=== PATIENT | female | born 1935 | race Caucasian/White ===

== ENCOUNTER → 2016-11-15 | Outpatient (CLI) | payer OTHER ==
[~2016-11-15] MED LIST: ASPI-390 PO; ASPI325T45 PO; CALCTAB PO; DOCU100T7 PO; HYDR25TA4 PO; LORA-741 PO; MECL12.5 PO; METO25TA3 PO; OMEG-21 PO; OMEP20CA9 PO; ONDA4TAB7 SL; POTA-331 PO; SIMV20TA5 PO
--- NOTE | 2016-11-15 14:55 | MAMMOGRAPHY REPORT ---
BILATERAL DIGITAL SCREENING MAMMOGRAM WITH CAD: 11/15/2016 CLINICAL HISTORY: Routine screening. Patient has no complaints. TECHNIQUE: Current study was also evaluated with a Computer Aided Detection (CAD) system. Bilateral CC and MLO views were obtained. COMPARISON: Comparison is made to exams dated: 11/15/2015 mammogram, 11/10/2014 mammogram, 11/09/2013 m ammogram, 05/05/2013 mammogram, 11/05/2012 ultrasound, and 11/05/2012 mammogram - [facility]. BREAST COMPOSITION: There are scattered areas of fibroglandular density in both breasts. FINDINGS: No suspicious masses, calcifications, or areas of architectural distortion are noted in ei ther breast. There has been no significant interval change compared to prior exams. Scattered bilater al benign-appearing calcifications are not significantly changed. IMPRESSION: ACR BI-RADS CATEGORY 2: BENIGN There is no mammographic evidence of malignancy. A 1 year screening mammogram is recommended. The pa tient will receive written notification of the results. Approximately 10% of breast cancers are not detected with mammography. A negative mammographic report should not delay biopsy if a clinically suggestive mass is present. Shirley Uriostegui M.D. /:11/15/2016 11:59:13 Gas Singer: Buffy BENJAMIN(Emily)(M), [facility] letter sent: Normal 1/2 BI-RADS Code: ACR BI-RADS Category 2: Benign
== END | disposition home or self-care (01) ==
LOC: C.MAMM 10:16
PROVIDERS: ATTEND Family Medicine
DX: Z12.31 Encounter for screening mammogram for malignant neoplasm of breast (principal)

== ENCOUNTER 2017-06-12 09:51 | Inpatient (IN) | payer OTHER ==
[~2017-06-12] VITALS: Ht 147.3 cm; Wt 97.7 kg
[~2017-06-12 09:51] MED LIST changes: +ASPECOTC PO; -ASPI325T45 PO; -DOCU100T7 PO; -HYDR25TA4 PO; -METO25TA3 PO
[2017-06-12] MEDS ORDERED: OPTIRAY 320 IV PRN (10:15)
--- NOTE | 2017-06-12 10:16 | DIAGNOSTIC IMAGING REPORT ---
CHEST ONE VIEW PORTABLE CLINICAL HISTORY: Atypical chest pain COMPARISON STUDY: 07/18/2012 FINDINGS: The cardiac and mediastinal contours remain stable. The heart remains borderline enlarged. There is no focal pulmonary consolidation. There is no overt failure. There are no pleural effusions. Increased attenuation of the lung bases is felt to be secondary to overlying soft tissue.[ IMPRESSION: No active disease in the chest. Electronically signed by: Adin Jaimes M.D. 06/12/2017 10:15 AM Dictated Date/Time: 06/12/2017 10:14 AM
--- NOTE | 2017-06-12 10:23 | EMERGENCY ROOM VISIT NOTE ---
History Report prepared by Inocencio: Lalo Hanson Under the Supervision of: Dr. Umesh Chacon M.D. First contact with patient: 09:53 Chief Complaint: SHORTNESS OF BREATH Stated Complaint: RESPIRATORY History of Present Illness The patient is an 82 year old female who presents to the Emergency Room with complaints of worsening shortness of breath starting yesterday. The patient was at her director client this morning for a check up due to a history of skin cancer , and she was short of breath, and she was sent to the ED for evaluation. The patient denies any chest pain, cough, fever, chills, and vomiting. She notes that she was nauseous two nights ago, and she was not short of breath at the time. She denies ever smoking, history of COPD, history of asthma, history of heart problems. She has a history of irregular heart beats. The patient additionally notes that she has a history of blood clots after a surgery, though she is not currently on any blood thinners. She states that she has a history of spinal stenosis, so she is not very active. The patient reports that she fell asleep in her recliner last night, and her legs are now swollen. Source of History: patient Onset: yesterday Position: other (generalized) Quality: other (shortness of breath) Timing: worsening Associated Symptoms: + nausea, No fevers, No chills, No cough, No chest pain , No vomiting Review of Systems See HPI for pertinent positives and negatives. A total of ten systems were reviewed and were otherwise negative. Past Medical & Surgical Medical Problems: (1) Atrial ventricular ectopy (2) Dyslipidemia (3) GERD (gastroesophageal reflux disease) (4) Hypertension (5) Osteoarthritis (6) Osteoporosis (7) Pulmonary embolism (8) Spinal stenosis Surgical Problems: (1) History of appendectomy (2) History of carpal tunnel surgery (3) History of cataract surgery (4) History of tonsillectomy and adenoidectomy Social History Problems: (1) Benign hypertension (2) Diverticulitis (3) Kidney stone (4) Migraine (5) renal insufficiency Social History Alcohol Use: none Drug Use: none Marital Status: Housing Status: lives alone Current/Historical Medications Scheduled Aspirin (Aspirin Ec), 81 MG PO DAILY Calcium Carbonate-Cholecalcife (Caltrate 600+D), 2 TAB PO QAM Cetirizine (Zyrtec), 10 MG PO DAILY Docusate Sodium (Stool Softener), 100 MG PO HS Hydrochlorothiazide (Hctz), 25 MG PO DAILY Metoprolol Succ (Toprol Xl) (Toprol-Xl), 37.5 MG PO DAILY Omeprazole (Prilosec), 20 MG PO DAILY Potassium Chloride (Micro-K Ext Rel), 20 MEQ PO DAILY Simvastatin (Zocor), 20 MG PO QPM Scheduled PRN Meclizine HCl (Meclizine HCl), 12.5-25 MG PO TID PRN for dizziness Allergies Coded Allergies: Sulfa Drugs (Verified Allergy, Intermediate, ITCHING, RASH, 06/12/17) Cephalosporins (Verified Allergy, Unknown, UNKNOWN, 06/12/17) Cephalexin (Verified Adverse Reaction, Unknown, GI UPSET, 06/12/17) pt Physical Exam Vital Signs Date Time Temp Pulse Resp B/P (MAP) Pulse Ox O2 Delivery O2 Flow Rate FiO2 06/12/17 13:42 89 20 97 Nasal Cannula 3.0 06/12/17 12:58 84 06/12/17 11:42 87 22 111/61 98 Nasal Cannula 4.0 06/12/17 10:04 97 Nasal Cannula 3.0 06/12/17 10:03 97 Nasal Cannula 3.0 06/12/17 10:03 100 06/12/17 09:59 85 Room Air 06/12/17 09:59 36.7 102 22 151/85 85 Room Air Physical Exam GENERAL: Awake, alert, dyspneic appearing, in no distress HENT: Normocephalic, atraumatic. Oropharynx Dry MM and otherwise unremarkable EYES: Normal conjunctiva. Sclera non-icteric. NECK: Supple. No nuchal rigidity. FROM. No JVD. RESPIRATORY: Clear to auscultation. CARDIAC: Tachycardic rate, normal rhythm. Extremities warm and well perfused. Pulses equal. ABDOMEN: Soft, non-distended. No tenderness to palpation. No rebound or guarding. No masses. RECTAL: Deferred. MUSCULOSKELETAL: Chest examination reveals no tenderness. The back is symmetrical on inspection without obvious abnormality. There is no CVA tenderness to palpation. No joint edema. LOWER EXTREMITIES: 1+ lower extremity edema. Calves are equal size bilaterally and non-tender. No discoloration. NEURO: Normal sensorium. No sensory or motor deficits noted. SKIN: No rash or jaundice noted. Medical Decision & Procedures ER Provider Diagnostic Interpretation: Radiology results as stated below per my review and radiologist interpretation: CHEST ONE VIEW PORTABLE CLINICAL HISTORY: Atypical chest pain COMPARISON STUDY: 07/18/2012 FINDINGS: The cardiac and mediastinal contours remain stable. The heart remains borderline enlarged. There is no focal pulmonary consolidation. There is no overt failure. There are no pleural effusions. Increased attenuation of the lung bases is felt to be secondary to overlying soft tissue.[ IMPRESSION: No active disease in the chest. Electronically signed by: Adin Jaimes M.D. 06/12/2017 10:15 AM Dictated Date/Time: 06/12/2017 10:[address] ANGIOGRAM OF THE CHEST CLINICAL HISTORY: Hypoxia. Tachycardia. COMPARISON STUDY: Chest x-ray dated 06/12/2017. TECHNIQUE: Following the IV administration of 120 cc of Optiray 320, CT angiogram of the chest was performed from the upper abdomen to the thoracic inlet utilizing the pulmonary embolus protocol. Images are reviewed in the axial, sagittal, and coronal planes. 3-D MIPS images are created and assessed. IV contrast was administered without complication. A dose lowering technique was utilized adhering to the principles of ALARA. The examination is degraded by large body habitus, and by streak artifact from the body wall abutting the CT gantry. CT DOSE: 560.58 mGycm FINDINGS: Thyroid: Imaged portions of the thyroid gland are normal in size and attenuation. Bilateral low-attenuation thyroid nodules measure up to 12 mm. Thoracic aorta: There is mild atherosclerotic calcification of the thoracic aorta, which is normal in caliber and demonstrates standard 3-vessel arch anatomy. No dissection is seen. Pulmonary vasculature: The main pulmonary arteries are dilated indicating pulmonary artery hypertension. There is extensive bilateral pulmonary embolus. Thrombus is seen within the distal right main pulmonary artery. This extends into the right upper, right middle, and right lower lobe branches into segmental and subsegmental levels. Thrombus is seen within the distal left main pulmonary artery. This extends into the left upper and left lower lobe pulmonary arteries extending into segmental branches. Heart: The heart is mildly enlarged and there is trace pericardial fluid. There is lipomatous hypertrophy of interatrial septum. The coronary arteries are densely calcified. Lungs and pleural spaces: Evaluation of the lung parenchyma is degraded by motion artifact. Patchy consolidation is seen in the left lower lobe. The lungs are otherwise clear. No pleural effusion is seen. The trachea and central airways are patent. Mediastinum: There is no mediastinal lymphadenopathy. Saba: Clear. Axillae: There is no axillary lymphadenopathy. Upper abdomen: The liver is enlarged and steatotic. A tiny hiatal hernia is identified. Skeletal structures: The skeletal structures are osteopenic. Degenerative change and scoliosis are noted in the thoracic spine. Arthritic change is seen in the shoulders. There are mild compression deformities of T3 and L1. No lytic or blastic bony lesions are seen. IMPRESSION: 1. Extensive bilateral pulmonary emboli as above. 2. There is patchy airspace consolidation at the left lung base. This likely represents developing pulmonary infarct given the presence of extensive pulmonary emboli. An infectious/inflammatory pneumonitis could appear similar and clinical correlation will be required. 3. Cardiomegaly with evidence of pulmonary artery hypertension. 4. Hepatomegaly and hepatic steatosis. 5. Additional findings as above. Electronically signed by: Hadley Redd M.D. 06/12/2017 12:29 PM Dictated Date/Time: 06/12/2017 12:21 PM Laboratory Results 06/12/17 10:49 Red Blood Count 4.66, Mean Corpuscular Volume 90.6, Mean Corpuscular Hemoglobin 32.0, Mean Corpuscular Hemoglobin Concent 35.3, Mean Platelet Volume 11.4, Neutrophils (%) (Auto) 79.2, Lymphocytes (%) (Auto) 12.8, Monocytes (%) (Auto) 5.7, Eosinophils (%) (Auto) 1.7, Basophils (%) (Auto) 0.4, Neutrophils # (Auto) 6.56, Lymphocytes # (Auto) 1.06, Monocytes # (Auto) 0.47, Eosinophils # (Auto) 0.14, Basophils # (Auto) 0.03 06/12/17 10:49 Test 06/12/17 10:05 06/12/17 10:49 Influenza Type A (RT-PCR) Neg for Influ A (NEG) Influenza Type B (RT-PCR) Neg for Influ B (NEG) White Blood Count 8.28 K/uL (4.8-10.8) Red Blood Count 4.66 M/uL (4.2-5.4) Hemoglobin 14.9 g/dL (12.0-16.0) Hematocrit 42.2 % (37-47) Mean Corpuscular Volume 90.6 fL (80-100) Mean Corpuscular Hemoglobin 32.0 pg (25-34) Mean Corpuscular Hemoglobin Concent 35.3 g/dl (32-36) Platelet Count 194 K/uL (130-400) Mean Platelet Volume 11.4 fL (7.4-10.4) Neutrophils (%) (Auto) 79.2 % Lymphocytes (%) (Auto) 12.8 % Monocytes (%) (Auto) 5.7 % Eosinophils (%) (Auto) 1.7 % Basophils (%) (Auto) 0.4 % Neutrophils # (Auto) 6.56 K/uL (1.4-6.5) Lymphocytes # (Auto) 1.06 K/uL (1.2-3.4) Monocytes # (Auto) 0.47 K/uL (0.11-0.59) Eosinophils # (Auto) 0.14 K/uL (0-0.5) Basophils # (Auto) 0.03 K/uL (0-0.2) RDW Standard Deviation 43.9 fL (36.4-46.3) RDW Coefficient of Variation 13.4 % (11.5-14.5) Immature Granulocyte % (Auto) 0.2 % Immature Granulocyte # (Auto) 0.02 K/uL (0.00-0.02) Venous Blood pH 7.41 (7.36-7.41) Venous Blood Partial Pressure CO2 47 mmHg (38.0-50.0) Venous Blood Partial Pressure O2 28 mmHg Venous Blood HCO3 29 mmol/L Venous Blood Oxygen Saturation < 60.0 % Venous Blood Base Excess 3.6 mEq/L Anion Gap 9.0 mmol/L (3-11) Est Creatinine Clear Calc Drug Dose 38.4 ml/min Estimated GFR () 50.6 Estimated GFR (Non- 43.7 BUN/Creatinine Ratio 22.0 (10-20) Calcium Level 9.8 mg/dl (8.5-10.1) Magnesium Level 1.7 mg/dl (1.8-2.4) Total Bilirubin 0.7 mg/dl (0.2-1) Direct Bilirubin mg/dl (0-0.2) Aspartate Amino Transf (AST/SGOT) 19 U/L (15-37) Alanine Aminotransferase (ALT/SGPT) 20 U/L (12-78) Alkaline Phosphatase 89 U/L (45-117) Troponin I < 0.015 ng/ml (0-0.045) Pro-B-Type Natriuretic Peptide 486 pg/ml (0-1800) Total Protein 7.4 gm/dl (6.4-8.2) Albumin 3.6 gm/dl (3.4-5.0) Lipase 71 U/L (73-393) Chemistry Specimen Hemolysis Laboratory results reviewed by me Medications Administered Medications (Trade) Dose Ordered Sig/Sierra Route Start Time Stop Time Status Last Admin Dose Admin Ondansetron HCl (Zofran Inj) 4 mg STK-MED ONCE .ROUTE 06/12/17 11:38 06/12/17 11:39 DC 06/12/17 11:42 4 MG Sodium Chloride 500 ml @ 999 mls/hr Q31M STAT IV 06/12/17 11:57 06/12/17 12:27 DC 06/12/17 12:27 999 MLS/HR Magnesium Sulfate (Magnesium Sulfate 1gm / D5W) 2 gm NOW STAT IV 06/12/17 12:42 06/12/17 12:45 DC 06/12/17 13:10 2 GM Heparin Sodium/ Dextrose (Heparin 25,000 Unit/500ml D5W) 25,000 unit STK-MED ONCE .ROUTE 06/12/17 12:59 06/12/17 13:00 DC 06/12/17 14:05 25,000 UNIT Heparin Sodium (Porcine) (Heparin Iv Bolus) 10,000 unit STK-MED ONCE .ROUTE 06/12/17 12:59 06/12/17 13:00 DC 06/12/17 14:04 5,000 UNIT ECG Per My Interpretation Indication: SOB/dyspnea Rate (beats per minute): 101 Rhythm: sinus tachycardia Findings: Q waves (Inferior), no acute ischemic change, left axis deviation ED Course 0953: The patient was evaluated in room B4. A complete history and physical exam was performed. 1240: I reevaluated the patient, and I discussed the treatment plan with her and her family. She will be evaluated for further management. 1245: I discussed the patient with Tiffanie Uribe. She will evaluate the patient for further treatment. Medical Decision I reviewed the patient's past medical history, medications, and the nursing notes as described above. Differential diagnosis: Etiologies such as infections, reactive airway disease, pneumonia, pneumothorax , COPD, CHF, cardiac ischemia, pulmonary embolism, musculoskeletal, gastrointestinal, as well as others were entertained. The patient is a pleasant 82-year-old woman who presents emergency department with shortness of breath over the past couple of days found to be hypoxic at her outpatient dermatology appointment per hpi. On arrival the patient is hypoxic to 85% on room air and tachycardic in the low 100s. The patient reports a remote history in the 90s of PEs in the setting of surgery also reports that she is been significantly immobile due to her spinal stenosis over the past couple of years. EKG with inferior Q waves and otherwise without evidence of acute ischemia. Troponin and BNP unremarkable. Chest x-ray negative. CT PE demonstrating extensive PE findings from b/l pulmonry arteries extending to segmental and subsegmental areas with question of an early developing pulmonary infarct. Patient denies any history of easy bleeding or GI bleeding. Given the question of pulmonary infarct will begin treatment with heparin drip at this time. Bedside echo performed and did not demonstrate any significant pericardial effusion. Moreover, there was no evidence of any gross right heart strain. Hemodynamically stable in ED. Case was discussed with Jojo Garcia PAC, who will evaluate the patient for admission. Medication Reconcilliation Current Medication List: was personally reviewed by me Blood Pressure Screening Patient's blood pressure: Elevated blood pressure Monitored by the hospitalist. Consults Time Called: 1240 Consulting Physician: Tiffanie Uribe Returned Call: 1245 I discussed the patient with Tiffanie Uribe. She will evaluate the patient for further treatment. Impression Primary Impression: Pulmonary embolism, bilateral Critical Care I have personally spent greater than 35 minutes of critical care time in the direct management of this patient. This includes bedside care, interpretation of diagnostic studies, and testing, discussion with consultants, patient, and family members, and other required patient management activities. This 35 minutes is in excess of all separately billable procedures. Scribe Attestation The scribe's documentation has been prepared under my direction and personally reviewed by me in its entirety. I confirm that the note above accurately reflects all work, treatment, procedures, and medical decision making performed by me. Departure Information Dispostion Being Evaluated By Hospitalist Referrals Noni Elizalde D.O. (PCP) Patient Instructions My [facility]
[2017-06-12] MEDS ORDERED: CALC-354 PO (10:59)
[2017-06-12] MEDS ORDERED: ASPI81TA28 PO (10:59)
[2017-06-12] MEDS ORDERED: CETI10TA84 PO (11:01)
[2017-06-12] MEDS ORDERED: PRLSR20 PO (11:01)
[2017-06-12 11:02] LABS: BASO % 0.4 %; BASO ABS # 0.03 K/uL (0-0.2); EOS % 1.7 %; EOS ABS # 0.14 K/uL (0-0.5); HEMATOCRIT 42.2 % (37-47); HEMOGLOBIN 14.9 g/dL (12.0-16.0); IG# 0.02 K/uL (0.00-0.02); LYMPH % 12.8 %; LYMPH ABS # 1.06 K/uL (1.2-3.4); MEAN CELL VOLUME 90.6 fL (80-100); MEAN CORPUSCULAR HGB CONC 35.3 g/dl (32-36); MEAN PLATELET VOLUME 11.4 fL (7.4-10.4); MONO % 5.7 %; MONO ABS # 0.47 K/uL (0.11-0.59); NEUT % 79.2 %; NEUT ABS # 6.56 K/uL (1.4-6.5); PLATELET COUNT 194 K/uL (130-400); RED CELL DISTRIBUTION WIDTH CV 13.4 % (11.5-14.5); RED CELL DISTRIBUTION WIDTH SD 43.9 fL (36.4-46.3); WHITE BLOOD COUNT 8.28 K/uL (4.8-10.8)
[2017-06-12 11:04] LABS: INFLUENZA A PCR Neg for Influ A (NEG); INFLUENZA B PCR Neg for Influ B (NEG)
[2017-06-12] MEDS ORDERED: MECL1TAB40 PO (11:04)
[2017-06-12] MEDS ORDERED: POTA10CA28 PO (11:17)
[2017-06-12 11:36] LABS: ALBUMIN 3.6 gm/dl (3.4-5.0); ALKALINE PHOSPHATASE 89 U/L (45-117); ALT/SGPT 20 U/L (12-78); AST/SGOT 19 U/L (15-37); BLOOD UREA NITROGEN 26 mg/dl (7-18); CALCIUM 9.8 mg/dl (8.5-10.1); CARBON DIOXIDE 27 mmol/L (21-32); CREATININE 1.17 mg/dl (0.60-1.20); GLUCOSE 140 mg/dl (70-99); LIPASE 71 U/L (73-393); POTASSIUM 3.9 mmol/L (3.5-5.1); SODIUM 138 mmol/L (136-145); TOTAL PROTEIN 7.4 gm/dl (6.4-8.2)
[2017-06-12] MEDS ORDERED: ONDANSETRON INJ 2 MG/ML 2 ML VIAL ONE (11:38)
[2017-06-12] MEDS ORDERED: NURSING VERBAL MED ORDER ONE (11:45)
[2017-06-12] MEDS ORDERED: SODIUM CHLORIDE 0.9% 500ML 500 ML IV STA (11:57)
--- NOTE | 2017-06-12 12:30 | DIAGNOSTIC IMAGING REPORT ---
CT ANGIOGRAM OF THE CHEST CLINICAL HISTORY: Hypoxia. Tachycardia. COMPARISON STUDY: Chest x-ray dated 06/12/2017. TECHNIQUE: Following the IV administration of 120 cc of Optiray 320, CT angiogram of the chest was performed from the upper abdomen to the thoracic inlet utilizing the pulmonary embolus protocol. Images are reviewed in the axial, sagittal, and coronal planes. 3-D MIPS images are created and assessed. IV contrast was administered without complication. A dose lowering technique was utilized adhering to the principles of ALARA. The examination is degraded by large body habitus, and by streak artifact from the body wall abutting the CT gantry. CT DOSE: 560.58 mGycm FINDINGS: Thyroid: Imaged portions of the thyroid gland are normal in size and attenuation. Bilateral low-attenuation thyroid nodules measure up to 12 mm. Thoracic aorta: There is mild atherosclerotic calcification of the thoracic aorta, which is normal in caliber and demonstrates standard 3-vessel arch anatomy. No dissection is seen. Pulmonary vasculature: The main pulmonary arteries are dilated indicating pulmonary artery hypertension. There is extensive bilateral pulmonary embolus. Thrombus is seen within the distal right main pulmonary artery. This extends into the right upper, right middle, and right lower lobe branches into segmental and subsegmental levels. Thrombus is seen within the distal left main pulmonary artery. This extends into the left upper and left lower lobe pulmonary arteries extending into segmental branches. Heart: The heart is mildly enlarged and there is trace pericardial fluid. There is lipomatous hypertrophy of interatrial septum. The coronary arteries are densely calcified. Lungs and pleural spaces: Evaluation of the lung parenchyma is degraded by motion artifact. Patchy consolidation is seen in the left lower lobe. The lungs are otherwise clear. No pleural effusion is seen. The trachea and central airways are patent. Mediastinum: There is no mediastinal lymphadenopathy. Saba: Clear. Axillae: There is no axillary lymphadenopathy. Upper abdomen: The liver is enlarged and steatotic. A tiny hiatal hernia is identified. Skeletal structures: The skeletal structures are osteopenic. Degenerative change and scoliosis are noted in the thoracic spine. Arthritic change is seen in the shoulders. There are mild compression deformities of T3 and L1. No lytic or blastic bony lesions are seen. IMPRESSION: 1. Extensive bilateral pulmonary emboli as above. 2. There is patchy airspace consolidation at the left lung base. This likely represents developing pulmonary infarct given the presence of extensive pulmonary emboli. An infectious/inflammatory pneumonitis could appear similar and clinical correlation will be required. 3. Cardiomegaly with evidence of pulmonary artery hypertension. 4. Hepatomegaly and hepatic steatosis. 5. Additional findings as above. Electronically signed by: Hadley Redd M.D. 06/12/2017 12:29 PM Dictated Date/Time: 06/12/2017 12:21 PM
[2017-06-12] MEDS ORDERED: HEPARIN SOD (PORCINE) 1000 UNIT/ML 10 ML VIAL ONE (12:59)
[2017-06-12] MEDS ORDERED: HEPARIN 25000 UNIT/500 ML D5W ONE (12:59)
[2017-06-12] MEDS: MAGNESIUM SULFATE 1GM / D5W 1 GM BAG IV STA ×2 (13:07→13:10)
--- NOTE | 2017-06-12 14:48 | History and Physical ---
History & Physical Date & Time of Service: Jun 12, 2017 ~ 13:15 Chief Complaint: Shortness of breath Primary Care Physician: Noni Elizalde D.O. History of Present Illness 82-year-old female who presents to the ER with chief complaint of shortness of breath. Patient reports that yesterday she felt a little short of breath but did not think much of it. She reports the shortness of breath was significantly worse this morning. She reports shortness of breath minimal exertion. Patient drove herself to her scheduled dermatology appointment this morning when she arrived to the office she was found to be visibly short of breath and EMS was therefore called. Patient reports she otherwise has been feeling well recently. She reports that she is not very active secondary to her spinal stenosis but denies any recent changes in her activity level. No recent long travel. She denies chest pain, lightheadedness, dizziness, diaphoresis, syncopal events. She has chronic lower extremity edema, left greater than right, that she feels is slightly worse than baseline. She had some mild nausea this morning but denies vomiting, abdominal pain, diarrhea. No fevers or chills. She denies any urinary symptoms. In the ED, patient underwent CTA chest that showed extensive bilateral pulmonary emboli with possible pulmonary infarction. She was saturating 85% on room air which improved with oxygen 3 L via nasal cannula. Otherwise vital signs are stable. Labs are unremarkable. Patient was started on IV heparin. Past Medical/Surgical History Medical Problems: (1) Atrial ventricular ectopy Status: Chronic (2) Dyslipidemia Status: Chronic (3) GERD (gastroesophageal reflux disease) Status: Chronic (4) Hypertension Status: Chronic (5) Osteoarthritis Status: Chronic (6) Osteoporosis Status: Chronic (7) Pulmonary embolism Status: Chronic (8) Spinal stenosis Status: Chronic Surgical Problems: (1) History of appendectomy Status: Chronic (2) History of carpal tunnel surgery Status: Chronic (3) History of cataract surgery Status: Chronic (4) History of tonsillectomy and adenoidectomy Status: Chronic Social History Problems: (1) Benign hypertension Status: Chronic (2) Diverticulitis Status: Chronic (3) Kidney stone Status: Resolved (4) Migraine Status: Chronic (5) renal insufficiency Status: Chronic Family History Noncontributory secondary to patient's advanced age Social History Smoking Status: Never Smoker Alcohol Use: none Immunizations History of Influenza Vaccine: Yes Influenza Vaccine Date: Nov 29, 2016 History of Tetanus Vaccine?: Yes Tetanus Immunization Date: Aug 21, 2012 History of Pneumococcal: Yes Pneumococcal Date: Apr 01, 2014 Allergies Coded Allergies: Sulfa Drugs (Verified Allergy, Intermediate, ITCHING, RASH, 06/12/17) Cephalosporins (Verified Allergy, Unknown, UNKNOWN, 06/12/17) Cephalexin (Verified Adverse Reaction, Unknown, GI UPSET, 06/12/17) pt Home Medications Scheduled Aspirin (Aspirin Ec), 81 MG PO DAILY Calcium Carbonate-Cholecalcife (Caltrate 600+D), 2 TAB PO QAM Cetirizine (Zyrtec), 10 MG PO DAILY Docusate Sodium (Stool Softener), 100 MG PO HS Hydrochlorothiazide (Hctz), 25 MG PO DAILY Metoprolol Succ (Toprol Xl) (Toprol-Xl), 37.5 MG PO DAILY Omeprazole (Prilosec), 20 MG PO DAILY Potassium Chloride (Micro-K Ext Rel), 20 MEQ PO DAILY Simvastatin (Zocor), 20 MG PO QPM Scheduled PRN Meclizine HCl (Meclizine HCl), 12.5-25 MG PO TID PRN for dizziness Review of Systems ROS per HPI, all other systems reviewed and negative Physical Exam Vital Signs Date Time Temp Pulse Resp B/P (MAP) Pulse Ox O2 Delivery O2 Flow Rate FiO2 06/12/17 12:58 84 06/12/17 11:42 87 22 111/61 98 Nasal Cannula 4.0 06/12/17 10:04 97 Nasal Cannula 3.0 06/12/17 10:03 97 Nasal Cannula 3.0 06/12/17 10:03 100 06/12/17 09:59 85 Room Air 06/12/17 09:59 36.7 102 22 151/85 85 Room Air General Appearance: WD/WN, no apparent distress, + obese Head: normocephalic, atraumatic Eyes: normal inspection, EOMI, sclerae normal ENT: hearing grossly normal, + pertinent finding (Mucous membranes moist) Neck: supple, no JVD, trachea midline Respiratory/Chest: lungs clear, normal breath sounds, no respiratory distress Cardiovascular: regular rate, rhythm, normal peripheral pulses, + pertinent finding (+1 edema BLE) Abdomen/GI: normal bowel sounds, non tender, soft, no organomegaly Extremities/Musculoskelatal: normal inspection, no calf tenderness, normal capillary refill Neurologic/Psych: no motor/sensory deficits, alert, normal mood/affect, oriented x 3 Skin: normal color, warm/dry Diagnostics Laboratory Results Results Past 24 Hours Test 06/12/17 10:05 06/12/17 10:49 06/12/17 14:00 Range/Units Influenza Type A (RT-PCR) Neg for Influ A NEG Influenza Type B (RT-PCR) Neg for Influ B NEG White Blood Count 8.28 4.8-10.8 K/uL Red Blood Count 4.66 4.2-5.4 M/uL Hemoglobin 14.9 12.0-16.0 g/dL Hematocrit 42.2 37-47 % Mean Corpuscular Volume 90.6 80-100 fL Mean Corpuscular Hemoglobin 32.0 25-34 pg Mean Corpuscular Hemoglobin Concent 35.3 32-36 g/dl Platelet Count 194 130-400 K/uL Mean Platelet Volume 11.4 7.4-10.4 fL Neutrophils (%) (Auto) 79.2 % Lymphocytes (%) (Auto) 12.8 % Monocytes (%) (Auto) 5.7 % Eosinophils (%) (Auto) 1.7 % Basophils (%) (Auto) 0.4 % Neutrophils # (Auto) 6.56 1.4-6.5 K/uL Lymphocytes # (Auto) 1.06 1.2-3.4 K/uL Monocytes # (Auto) 0.47 0.11-0.59 K/uL Eosinophils # (Auto) 0.14 0-0.5 K/uL Basophils # (Auto) 0.03 0-0.2 K/uL RDW Standard Deviation 43.9 36.4-46.3 fL RDW Coefficient of Variation 13.4 11.5-14.5 % Immature Granulocyte % (Auto) 0.2 % Immature Granulocyte # (Auto) 0.02 0.00-0.02 K/uL Venous Blood pH 7.41 7.36-7.41 Venous Blood Partial Pressure CO2 47 38.0-50.0 mmHg Venous Blood Partial Pressure O2 28 mmHg Venous Blood HCO3 29 mmol/L Venous Blood Oxygen Saturation < 60.0 % Venous Blood Base Excess 3.6 mEq/L Sodium Level 138 136-145 mmol/L Potassium Level 3.9 3.5-5.1 mmol/L Chloride Level 102 98-107 mmol/L Carbon Dioxide Level 27 21-32 mmol/L Anion Gap 9.0 3-11 mmol/L Blood Urea Nitrogen 26 7-18 mg/dl Creatinine 1.17 0.60-1.20 mg/dl Est Creatinine Clear Calc Drug Dose 38.4 ml/min Estimated GFR () 50.6 Estimated GFR (Non- 43.7 BUN/Creatinine Ratio 22.0 10-20 Random Glucose 140 70-99 mg/dl Calcium Level 9.8 8.5-10.1 mg/dl Magnesium Level 1.7 1.8-2.4 mg/dl Total Bilirubin 0.7 0.2-1 mg/dl Direct Bilirubin 0-0.2 mg/dl Aspartate Amino Transf (AST/SGOT) 19 15-37 U/L Alanine Aminotransferase (ALT/SGPT) 20 12-78 U/L Alkaline Phosphatase 89 45-117 U/L Troponin I < 0.015 0-0.045 ng/ml Pro-B-Type Natriuretic Peptide 486 0-1800 pg/ml Total Protein 7.4 6.4-8.2 gm/dl Albumin 3.6 3.4-5.0 gm/dl Lipase 71 73-393 U/L Chemistry Specimen Hemolysis Diagnostic Radiology CXR IMPRESSION: No active disease in the chest. CTA CHEST IMPRESSION: 1. Extensive bilateral pulmonary emboli as above. 2. There is patchy airspace consolidation at the left lung base. This likely represents developing pulmonary infarct given the presence of extensive pulmonary emboli. An infectious/inflammatory pneumonitis could appear similar and clinical correlation will be required. 3. Cardiomegaly with evidence of pulmonary artery hypertension. 4. Hepatomegaly and hepatic steatosis. 5. Additional findings as above. Impression Assessment and Plan BILATERAL PULMONARY EMBOLISM WITH POSSIBLE PULMONARY INFARCTION ACUTE HYPOXIC RESPIRATORY FAILURE -Admit to telemetry -Patient presenting with shortness of breath 1 day; in the ED found to have extensive bilateral pulmonary embolism with possible pulmonary infarction -On presentation, was saturating 85% on room air, this improved with oxygen 3 L via nasal cannula -History of pulmonary embolism in 1992 after kidney stone surgery -Non-smoker, no recent long travel, however patient is not very active due to her history of spinal stenosis -Given history of pulmonary embolism in the past, patient will need lifelong anticoagulation -Check lower extremity Dopplers, resting echocardiogram to evaluate for right- sided heart strain -Started on heparin in the ED, will continue with, discussed the patient and family regarding long-term anticoagulation (Coumadin versus NOAC) -to be decided later TRACE PERICARDIAL EFFUSION -Noted on CT chest -Will obtain echo for follow-up HYPERTENSION -BP controlled, continue metoprolol and HCTZ GERD -continue PPI DYSLIPIDEMIA -continue statin DVT PROPHYLAXIS -On heparin drip CODE STATUS -Patient is a DNR as per my discussion with her and her family who is the bedside. DISPOSITION -In my clinical judgment this beneficiary meets acute admission criteria, established by [facility], that includes being hospitalized through two midnights. -PT/OT, case management consults; expect DC home once medically stable Attending Addendum Pt was seen and examined. Agreed with Altagracia CORREA exam, assessment and plan. 82- year-old female who presents to the ER with chief complaint of shortness of breath. Pt said that yesterday she started to have minimal sob. but she said that today the SOB worsening. Pt said that she has not been moving much lately. She was schedule to see dermatology, she said that once she got to the building , she asked for help and staff called EMS. She was brought to the hospital and stat CT chest in the ER showed b/l extensive PE. Starting on Heparin drip. Will get an echo. consult placed for pulmonary. Family will decide about anticoagulant between the new agents and Coumadin. Will monitor closely. MD Mildred Resuscitation Status VTE Prophylaxis Will order VTE Prophylaxis: Yes
[2017-06-12 15:53] LABS: PTT PATIENT 25.9 SECONDS (21.0-31.0)
--- NOTE | 2017-06-12 16:24 | DIAGNOSTIC IMAGING REPORT ---
VENOUS DOPPLER LWR EXT BILA HISTORY: Mental status change. Pain. Edema. PE COMPARISON STUDY: None. FINDINGS: Acute deep venous embolus is left distal superficial femoral vein extending to the popliteal and distal calf veins. This includes a left posterior tibial and peroneal veins. All remaining venous structures are unremarkable. IMPRESSION: Acute deep venous thrombosis throughout the left leg extending from the distal left superficial femoral vein through the calf veins. The right leg is unremarkable. The above report was generated using voice recognition software. It may contain grammatical, syntax or spelling errors. Electronically signed by: Jcarlos Hodges M.D. 06/12/2017 4:22 PM Dictated Date/Time: 06/12/2017 4:21 PM
[2017-06-12 16:30] VITALS: BP 141/85; PULSE 88; TEMP 36.4; O2SAT 98; Ht 147.3 cm; Wt 97.7 kg
[2017-06-12] MEDS: HEPARIN 25,000 UNIT/500ML D5W 500 ML IV SCH ×2 (17:00→23:09)
[2017-06-12] MEDS ORDERED: METO25TA3 PO (17:11)
[2017-06-12] MEDS ORDERED: HYDR25TA4 PO (17:11)
[2017-06-12] MEDS ORDERED: DOCU100T7 PO (17:11)
[2017-06-12 19:17] VITALS: BP 137/77; PULSE 91; TEMP 36.7; O2SAT 95
[2017-06-12] MEDS: SIMVASTATIN 20 MG TAB PO SCH (19:47)
[2017-06-12] MEDS: ACETAMINOPHEN 325 MG TAB PO PRN (19:47)
[2017-06-12] MEDS: DOCUSATE SODIUM 100 MG CAP PO SCH (19:48)
--- NOTE | 2017-06-12 20:17 | PULMONARY CONSULTATION ---
DATE OF CONSULTATION: 06/12/2017 TIME: 5:10 p.m. HISTORY OF PRESENT ILLNESS: The patient was seen in room 205. She is a very pleasant 82-year-old female who presented to the Emergency Room today. She has had shortness of breath for 1 or 2 days. She had denied any chest pains. However, she admits to having some soreness underneath the left scapula. She has had no cough. There has been no sputum production or hemoptysis. She denies any pleuritic type of pain. She was scheduled to see her creeler today. She drove to the building where her dermatology office is. However, she was not feeling well, and she went in to the Surg center and asked if someone would help. 911 was summoned and they took the patient to the Emergency Room. She has undergone an evaluation and was found to have bilateral pulmonary emboli. The patient has a history of pulmonary emboli in 1992. This occurred after she had had kidney stone surgery. She was on Coumadin for about 3 months and then it was stopped. She has not had any recurrence of the blood clots in the interim. Her major risk factor for blood clotting is she has a very sedentary life. This is related to difficulties with spinal stenosis and pain related to that. She does not get out all that much. On May 25, she did have a car trip lasting 2-1/2 hours in [address] direction. She has not had any airline flights. She has not had any injury to her legs recently. There is no family history of blood clots. She does not have a history of malignancy. The only exception to that would be skin cancers, which are either basal cell or squamous cell. The patient is feeling comfortable. She has low flow nasal oxygen on. In the Emergency Room, her initial saturation was only 85% on room air. She denies having any pains or discomforts in her legs. She has chronically the left leg larger than the right. She states that has been since she was a teenager. PAST SURGICAL HISTORY: 1. Appendectomy in 1955 2. Carpal tunnel syndrome surgery. 3. Cataract surgeries. 4. T&A. 5. Kidney stones. PAST MEDICAL HISTORY: 1. Skin cancer. 2. Cardiac arrhythmia. 3. Spinal stenosis. 4. Hyperlipidemia. 5. Reflux. 6. Remote history of peptic ulcer disease. 7. Hypertension. 8. DJD. 9. Osteoporosis. 10. Fractured pelvis. SOCIAL HISTORY: Tobacco: Never. ETOH: Never. ALLERGIES: 1. SULFA WHICH CAUSED A RASH. 2. KEFLEX QUESTIONABLY MADE HER DIZZY. FAMILY HISTORY: Mother , age 87, brain tumor. Father , age 73, CVA and he had Parkinson's disease. 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 HOME MEDICATIONS: 1. Aspirin 81 mg daily. 2. Calcium D 2 tablets daily. 3. Cetirizine 10 mg daily. 4. Docusate 100 mg daily. 5. HCTZ 25 mg daily. 6. Meclizine 12.5 mg 1 or 2 t.i.d. p.r.n. 7. Metoprolol 37.5 mg daily. 8. Omeprazole 20 mg daily. 9. Potassium 10 mEq 2 daily. 10. Simvastatin 20 mg daily. REVIEW OF SYSTEMS: Negative except for the above-mentioned complaints. 10 systems reviewed. PHYSICAL EXAMINATION: GENERAL: The patient is a very pleasant 82-year-old female who was cooperative, alert, and oriented. She was in no distress. Her weight is 100.9 kg. BMI is 46.9. HEENT: Eyes exam suggested implants. Nares were clear. Mouth exam showed no erythema or exudate. NECK: Palpation of the neck reveals no lymph nodes or masses. CARDIOVASCULAR: The cardiac rate was 90 per minute. Blood pressure 104/59. The rhythm was regular. RESPIRATORY: Auscultation of the lung blair revealed them to be clear. No wheezes, rales, or rhonchi heard. Respiratory rate was 18 breaths per minute. GASTROINTESTINAL: The abdomen was obese. It was soft and nontender. No definite mass was palpable. MUSCULOSKELETAL: Extremities showed no cyanosis, clubbing, or edema. The left leg did look slightly larger than the right leg in the area of the lower portion below the knee. She did not have any pain with dorsiflexion of her foot. LABORATORY DATA: White count is 8.28, hemoglobin 14.9, platelets 194,000. Coags were unremarkable. Venous blood gas showed pH 7.41, PCO2 of 47, PO2 of 28. Electrolytes showed sodium 138, potassium 3.9, chloride 102, bicarbonate 27, BUN 26, creatinine 1.17. Calcium is 9.8. Magnesium decreased slightly to 1.7. Liver functions were normal. Troponin was negative. ProBNP was 486. Lipase was low at 71. Albumin 3.6, total protein 7.4. Chest x-ray was unremarkable. CT angio of the chest showed extensive bilateral pulmonary emboli. This involved right upper lobe, right middle lobe, right lower lobe, left upper lobe, and left lower lobe. Trace pericardial effusion was suggested. There was an infiltrative consolidation in the left lower lobe. This may represent pulmonary infarction. Typically, however, one would have more pain associated with infarctions. Pneumonia is not entirely excluded. It would seem to be less likely; however. The possibility of pulmonary hypertension is to be entertained as the main pulmonary arteries were dilated. EKG showed evidence of a sinus rhythm. I could not entirely exclude an inferior [place] previously. Reportedly, it is unchanged compared with 07/18/2012. IMPRESSION: 1. Acute pulmonary embolism involving right and left lungs. 2. Left lower lobe infiltrate, most likely pulmonary infarction but is a little bit atypical, cannot exclude pneumonia. COMMENTS AND RECOMMENDATIONS: The patient seems hemodynamically stable thus far. Troponin was negative which is good. She is going to have an echo. She did have a venous Doppler of the lower extremities that showed acute DVT of the left leg involving left superficial femoral veins through the calf vein. Thus, this is likely the source of the clots in the lungs. The patient has now had 2 episodes of pulmonary emboli, and I believe this would likely require long-term anticoagulation. The patient previously had been on Coumadin and did well. We discussed in general the new agents such as Xarelto and Eliquis. They offer some benefits or advantages. At the time I saw the patient, I did not know that her BMI was 47. This may limit the choices on the newer agents. For now she is on heparin drip, and the patient is going to consider all of the choices. We will need to check with the pharmacy regarding the limitations about BMI elevation with the newer anticoagulants. Thank you very much for asking me to assist in her care.
[2017-06-12 21:15] LABS: PTT PATIENT 24.3 SECONDS (21.0-31.0)
[2017-06-12] MEDS ORDERED: HEPARIN IV BOLUS 5,000 UNIT in SYRINGE 0 ML IV ONE (22:15)
[2017-06-13] VITALS (11 sets, daily range): BP systolic 115–142; BP diastolic 60–84; PULSE 72–91; TEMP 36.4–36.8; O2SAT 94–98
[2017-06-13] MEDS: ACETAMINOPHEN 325 MG TAB PO PRN (04:17)
[2017-06-13 04:48] LABS: HEMATOCRIT 36.9 % (37-47); HEMOGLOBIN 12.9 g/dL (12.0-16.0); MEAN CELL VOLUME 90.2 fL (80-100); MEAN CORPUSCULAR HEMOGLOBIN 31.5 pg (25-34); MEAN PLATELET VOLUME 11.1 fL (7.4-10.4); PLATELET COUNT 175 K/uL (130-400); RED CELL DISTRIBUTION WIDTH CV 13.2 % (11.5-14.5); WHITE BLOOD COUNT 5.92 K/uL (4.8-10.8)
[2017-06-13 05:07] LABS: CALCIUM 8.6 mg/dl (8.5-10.1); CREATININE 1.06 mg/dl (0.60-1.20); POTASSIUM 3.5 mmol/L (3.5-5.1)
[2017-06-13 05:20] LABS: PTT PATIENT 51.5 SECONDS (21.0-31.0)
--- NOTE | 2017-06-13 07:35 | Clinical Documentation Query ---
CLINICAL DOCUMENTATION QUERY 82 year old female who presents bilateral PE's and in acute respiratory failure. Chest CT also shows dilated pulmonary arteries, pulmonary HTN, and heart enlargement. In your clinical opinion is this patient being managed for: ( ) Bilateral PE with "acute cor pulmonale" ( ) Not Agree ( ) Other explanation of clinical findings (Please Explain. If no explanation given, this would be considered a no response.) ( X ) Unable to determine - awaiting echo ( ) Need to Discuss (Please call CDS via extension or qliq. If no interaction occurs this is considered a no response.) The medical record reflects the following clinical findings, treatment, and risk factors. Clinical Indicators: As above, Treatment: anticoagulation, cardiopulmonary support, Echo, pulmonary consult Risk Factors: Bilateral PE with suspected pulmonary infarct. Please clarify and document your clinical opinion in the progress notes and discharge summary. Terms such as "probable", "suspected", "likely", "questionable", "possible", or "still to be ruled out" are acceptable. IF IN AGREEMENT, YOU MUST DOCUMENT ABOVE DIAGNOSTIC STATEMENT IN DAILY PROGRESS NOTES AND DISCHARGE SUMMARY. This document is not part of the patient's record. Thank You, Ambrosio Walter RN [phone] & via qlicCONNECT
[2017-06-13] MEDS: METOPROLOL SUCC 25MG EXT REL TAB PO SCH (07:44)
[2017-06-13] MEDS: CETIRIZINE HCL 10 MG TAB PO SCH (07:45)
[2017-06-13] MEDS: HYDROCHLOROTHIAZIDE 25 MG TAB PO SCH (07:45)
[2017-06-13] MEDS: POTASSIUM CHLORIDE 20 MEQ TABCR PO SCH (07:45)
[2017-06-13] MEDS: PANTOprazole SOD 40 MG TAB PO SCH (07:45)
[2017-06-13] MEDS: CALCIUM 600MG + VIT D 400 IU TAB PO SCH (07:46)
[2017-06-13] MEDS: ASPIRIN 81 MG ECTAB PO SCH (07:46)
--- NOTE | 2017-06-13 10:28 | PULMONARY PROGRESS NOTE ---
DATE: 06/13/2017 TIME: 9:50 a.m. SUBJECTIVE: The patient is feeling well today. She has no specific complaints other than not sleeping well. She denies shortness of breath. She denies chest pains, chills, fevers or sweats. I did question the patient somewhat about her sleep habits. She tends to go to bed late. She does nap during the day. Her son was with her during this evaluation. The patient indicates she does not know if she snores. She has never had a sleep study. She does not think she has sleep apnea. I explained to her that because she is obese, she would be at risk. I just suggested that when she is stable, perhaps even an overnight pulse oximetry should be done to evaluate if she has significant desaturations at night and if so, then perhaps pursue a sleep evaluation. OBJECTIVE: GENERAL: The patient appears comfortable. Temperature is 36.5. EARS, NOSE, THROAT: Exam is unchanged from yesterday. VITAL SIGNS: Heart rate is 80 per minute. The rhythm is regular. Blood pressure 119/68. LUNGS: Lung blair are clear bilaterally. Oxygen saturation was 96% on room air. Respiratory rate was 16 breaths per minute. EXTREMITIES: Showed no cyanosis, clubbing or edema. The left leg is slightly larger than the right, which is apparently chronic. LABORATORY DATA: White count today is 5.92. Hemoglobin 12.9. Platelets 175,000. PTT this morning was 51.5. Electrolytes today were normal. BUN was 23 with a creatinine of 1.06. I believe an echocardiogram was done but the results are pending. IMPRESSIONS: 1. Acute pulmonary embolism involving right and left lungs. 2. Left lower lobe infiltrate, likely secondary to infarction but not entirely able to exclude infection. COMMENTS AND RECOMMENDATIONS: The patient, I believe is interested in getting treated ultimately with Eliquis if her insurance will cover it. She believes that she would like to convenience of not having to have her INRs checked. However, Coumadin will be fine if her insurance will not cover. Case was discussed with Dr. Magdaleno. He will arrange for the business case analyst to check and see if Eliquis would be covered by her insurance. She seems to be making very good progress at this point in time, and is stable hemodynamically. PB
--- NOTE | 2017-06-13 11:39 | Progress Note ---
Subjective Date of Service: Jun 13, 2017. Subjective Pt evaluation today including: conversation w/ patient, physical exam, lab review, review of studies, conversation w/ surgical product sales consultant, review of inpatient medication list Saw/examined the patient in room 205 She's doing well, no chest pain, breathing is improving Denies any other issues at this time Problem List Medical Problems: (1) Pulmonary embolism, bilateral Status: Acute Social History Problems: (1) Benign hypertension Status: Chronic (2) Diverticulitis Status: Chronic (3) Migraine Status: Chronic (4) renal insufficiency Status: Chronic Review of Systems Constitutional: No fever, No chills, No weakness Respiratory: + shortness of breath (improving), No cough, No sputum Cardiac: No chest pain, No edema, No palpitations Abdomen: No pain, No nausea, No vomiting, No diarrhea Medications Current Inpatient Medications Medications (Trade) Dose Ordered Sig/Sierra Route Start Time Stop Time Status Last Admin Dose Admin Ioversol (Optiray 320) 100 ml UD PRN IV 06/12/17 10:15 06/16/17 10:14 Acetaminophen (Tylenol Tab) 650 mg Q4H PRN PO 06/12/17 13:45 07/12/17 13:44 06/13/17 04:17 650 MG Aspirin (Ecotrin Tab) 81 mg DAILY PO 06/13/17 09:00 07/13/17 08:59 06/13/17 07:46 81 MG Cetirizine HCl (zyrTEC TAB) 10 mg DAILY PO 06/13/17 09:00 07/13/17 08:59 06/13/17 07:45 10 MG Hydrochlorothiazide (Hydrochlorothiazide Tab) 25 mg DAILY PO 06/13/17 09:00 07/13/17 08:59 06/13/17 07:45 25 MG Metoprolol Succinate (Toprol Xl Tab) 37.5 mg DAILY PO 06/13/17 09:00 07/13/17 08:59 06/13/17 07:44 37.5 MG Potassium Chloride (Klor-Con Tab) 20 meq DAILY PO 06/13/17 09:00 07/13/17 08:59 06/13/17 07:45 20 MEQ Simvastatin (Zocor Tab) 20 mg QPM PO 06/12/17 21:00 07/12/17 20:59 06/12/17 19:47 20 MG Calcium/Vitamin D (Caltrate Plus Tab) 2 tab QAM PO 06/13/17 09:00 07/13/17 08:59 06/13/17 07:46 2 TAB Docusate Sodium (coLACE CAP) 100 mg HS PO 06/12/17 21:00 07/12/17 20:59 06/12/17 19:48 100 MG Pantoprazole Sodium (Protonix Tab) 40 mg QAM PO 06/13/17 09:00 07/13/17 08:59 06/13/17 07:45 40 MG Heparin Sodium/ Dextrose 500 ml @ 29 mls/hr [id number] IV 06/12/17 17:00 07/12/17 16:59 06/12/17 23:09 29 MLS/HR Objective Vital Signs Date Time Temp Pulse Resp B/P (MAP) Pulse Ox O2 Delivery O2 Flow Rate FiO2 06/13/17 08:00 96 Room Air 3.0 100 06/13/17 07:34 36.5 82 20 119/68 (85) 98 Nasal Cannula 2.0 06/13/17 04:31 36.8 80 16 115/72 (86) 96 Room Air 06/13/17 04:00 Nasal Cannula 3.0 06/13/17 00:30 36.6 91 20 142/65 (90) 94 Nasal Cannula 3.0 06/13/17 00:01 Nasal Cannula 3.0 06/12/17 20:00 Nasal Cannula 3.0 06/12/17 19:17 36.7 91 22 137/77 (97) 95 Nasal Cannula 3.8 100 06/12/17 16:30 36.4 88 22 141/85 98 Nasal Cannula 3.0 06/12/17 15:20 91 18 104/59 98 06/12/17 15:17 91 18 104/59 98 Nasal Cannula 3.0 06/12/17 13:42 89 20 97 Nasal Cannula 3.0 06/12/17 12:58 84 06/12/17 11:42 87 22 111/61 98 Nasal Cannula 4.0 Physical Exam General Appearance: no apparent distress, + obese Respiratory/Chest: chest non-tender, lungs clear, normal breath sounds, no respiratory distress, no accessory muscle use Cardiovascular: regular rate, rhythm, no edema, no murmur Extremities: normal inspection, no pedal edema Neurologic/Psychiatric: no motor/sensory deficits, alert, normal mood/affect Laboratory Results Last 24 Hours Test 06/12/17 14:38 06/12/17 20:13 06/13/17 04:20 Prothrombin Time 10.7 SECONDS Prothromb Time International Ratio 1.0 Activated Partial Thromboplast Time 25.9 SECONDS 24.3 SECONDS 51.5 SECONDS Partial Thromboplastin Ratio 1.0 0.9 2.0 White Blood Count 5.92 K/uL Red Blood Count 4.09 M/uL Hemoglobin 12.9 g/dL Hematocrit 36.9 % Mean Corpuscular Volume 90.2 fL Mean Corpuscular Hemoglobin 31.5 pg Mean Corpuscular Hemoglobin Concent 35.0 g/dl RDW Standard Deviation 44.0 fL RDW Coefficient of Variation 13.2 % Platelet Count 175 K/uL Mean Platelet Volume 11.1 fL Sodium Level 137 mmol/L Potassium Level 3.5 mmol/L Chloride Level 103 mmol/L Carbon Dioxide Level 27 mmol/L Anion Gap 7.0 mmol/L Blood Urea Nitrogen 23 mg/dl Creatinine 1.06 mg/dl Est Creatinine Clear Calc Drug Dose 41.9 ml/min Estimated GFR () 57.0 Estimated GFR (Non- 49.2 BUN/Creatinine Ratio 21.7 Random Glucose 149 mg/dl Calcium Level 8.6 mg/dl Magnesium Level 2.0 mg/dl Assessment and Plan This is an 82 year old female with a past medical history of morbid obesity, HTN , HLD, osteoporosis, vitamin D deficiency - presents with acute bilateral PE and acute DVT Acute Bilateral PE Acute L sided DVT - patient currently on IV heparin - not requiring much supplemental oxygen, though on 2L for now; can probably wean off - clinically improving - plan to switch to Coumadin vs. Eliquis; due to patient's obesity, Coumadin may be better choice; patient does want NOAC though - will discuss pricing with case management prior to making any decision HTN - blood pressure controlled - continue current medications DVT ppx - IV heparin DNR
[2017-06-13 13:16] LABS: PTT PATIENT 88.5 SECONDS (21.0-31.0)
[2017-06-13] MEDS: WARFARIN SOD 5 MG TAB PO SCH (15:44)
--- NOTE | 2017-06-13 16:36 | ECHOCARDIOGRAM REPORT ---
*NOTICE TO RECEIVING CONSTITUTION PARTY AGENCY This information is strictly Confidential and protected under [place] law. [place] law prohibits you from making any further disclosure of this information unless further disclosure is expressly permitted by the written consent of the person to whom it pertains or is authorized by law. A general authorization for the release of medical or other information is not sufficient for this purpose. Hospital accepts no responsibility if the information is made available to any other person, INCLUDING THE PATIENT. Interpretation Summary * Name: NATASHA SCHNEIDER Study Date: 06/13/2017 07:08 AM BP: 115/72 mmHg * Patient Location: C.2E\S\E205\S\1 HR: 80 * : 1935 (M/d/yyyy) Gender: Female Height: 57 in * Age: 82 yrs Ethnicity: [place] Weight: 222 lb * Ordering Physician: Altagracia Maria * Referring Physician: Self, Referred * Performed By: Sharita Cleveland RDCS * * Reason For Study: PERICARDIAL EFFUSION ON CT * BSA: 1.9 m2 * The study was technically adequate. * -- Conclusions -- * Ejection Fraction = >70 %. * There is moderate concentric left ventricular hypertrophy. * Aortic valve sclerosis mild, without significant aortic valvular stenosis. * There is trace tricuspid regurgitation. * The estimated systolic pulmonary arterial pressure is 40 mmHg. * The right ventricle is normal size. * The right ventricular systolic function is normal as assessed by tricuspid annular plane systolic excursion (TAPSE) (normal >1.5 cm). * Normal inferior vena cava diameter and respiratory variation suggests normal central venous pressure. * Findings suggestive of pericardial fat pad. * No significant pericardial effusion. Procedure Details * A contrast injection of Definity was performed to improve assessment of LV function. * Contrast was injected into an intravenous site in the left arm. * One vial of Definity ultrasound contrast was diluted in normal saline to a total volume of 10 ml. A total of '2' ml of solution was administered during imaging. * Lot # [id number] of Definity utilized for procedure. * Expiration date 1 APR 07. * The attending nurse who injected the contrast agent was HARMAN LEACH RN. * A complete two-dimensional transthoracic echocardiogram was performed (2D, M-mode, Doppler and color flow Doppler). Left Ventricle * The left ventricle is normal in size. * There is moderate concentric left ventricular hypertrophy. * Ejection Fraction = >70 %. * Left ventricular systolic function is normal. * The left ventricular wall motion is normal. Right Ventricle * The right ventricle is normal size. * The right ventricular systolic function is normal as assessed by tricuspid annular plane systolic excursion (TAPSE) (normal >1.5 cm). Atria * The left atrial size is normal. * Right atrial size is normal. * There is no evidence of atrial septal defect, but resolution does not allow assessment for a patent foramen ovale. Mitral Valve * The mitral valve is normal. * There is no mitral valve stenosis. * Significant mitral regurgitation is absent. Tricuspid Valve * The tricuspid valve is normal. * There is no tricuspid stenosis. * There is trace tricuspid regurgitation. * The estimated systolic pulmonary arterial pressure is 40 mmHg. Aortic Valve * The aortic valve is trileaflet. * Aortic valve sclerosis mild, without significant aortic valvular stenosis. * Aortic stenosis is absent. * There is no significant aortic regurgitation. Pulmonic Valve * The pulmonary valve is not well seen, but the Doppler examination is normal without significant regurgitation or stenosis. Great Vessels * The aortic root is normal size. Pericardium/Pleural * Findings suggestive of pericardial fat pad. No significant pericardial effusion. Great Vessels * Normal inferior vena cava diameter and respiratory variation suggests normal central venous pressure. Left Ventricular Diastolic Function * Grade I diastolic dysfunction, (abnormal relaxation pattern). MMode 2D Measurements and Calculations IVSd 1.5 cm IVSs 1.9 cm LVIDd 3.0 cm LVIDs 1.8 cm LVPWd 1.3 cm LVPWs 2.4 cm IVS/LVPW 1.2 FS 40.0 % EDV(Teich) 35.1 ml ESV(Teich) 9.7 ml EF(Teich) 72.2 % EDV(cubed) 27.1 ml ESV(cubed) 5.9 ml EF(cubed) 78.4 % % IVS thick 24.1 % % LVPW thick 88.7 % LV mass(C)d 140.2 grams LV mass(C)dI 74.6 grams/m\S\2 LV mass(C)s 185.2 grams LV mass(C)sI 98.5 grams/m\S\2 SV(Teich) 25.4 ml SI(Teich) 13.5 ml/m\S\2 SV(cubed) 21.2 ml SI(cubed) 11.3 ml/m\S\2 Ao root diam 3.1 cm Ao root area 7.3 cm\S\2 LA dimension 2.4 cm LA/Ao 0.78 LVAd ap4 22.2 cm\S\2 LVLd ap4 7.1 cm EDV(MOD-sp4) 55.1 ml EDV(sp4-el) 58.4 ml LVAs ap4 11.1 cm\S\2 LVLs ap4 6.2 cm ESV(MOD-sp4) 16.5 ml ESV(sp4-el) 17.0 ml EF(MOD-sp4) 70.0 % EF(sp4-el) 71.0 % LVAd ap2 20.7 cm\S\2 LVLd ap2 7.3 cm EDV(MOD-sp2) 48.3 ml EDV(sp2-el) 49.9 ml LVAs ap2 9.3 cm\S\2 LVLs ap2 6.0 cm ESV(MOD-sp2) 11.9 ml ESV(sp2-el) 12.2 ml EF(MOD-sp2) 75.4 % EF(sp2-el) 75.6 % LVLd %diff 2.2 % EDV(MOD-bp) 51.5 ml LVLs %diff -2.98 % ESV(MOD-bp) 13.7 ml EF(MOD-bp) 73.4 % SV(MOD-sp4) 38.6 ml SI(MOD-sp4) 20.5 ml/m\S\2 SV(MOD-sp2) 36.4 ml SI(MOD-sp2) 19.4 ml/m\S\2 SV(MOD-bp) 37.8 ml SI(MOD-bp) 20.1 ml/m\S\2 SV(sp4-el) 41.4 ml SI(sp4-el) 22.0 ml/m\S\2 SV(sp2-el) 37.7 ml SI(sp2-el) 20.1 ml/m\S\2 Doppler Measurements and Calculations MV E max jeromy 74.2 cm/sec MV A max jeromy 98.5 cm/sec MV E/A 0.75 MV dec time 0.37 sec Ao V2 max 137.9 cm/sec Ao max PG 7.6 mmHg Ao max PG (full) 2.8 mmHg LV V1 max PG 4.8 mmHg LV V1 max 109.1 cm/sec TR max jeromy 243.2 cm/sec
[2017-06-13] MEDS: DOCUSATE SODIUM 100 MG CAP PO SCH (21:17)
[2017-06-13] MEDS: MECLIZINE HCL 12.5 MG TAB PO PRN (21:18)
[2017-06-13] MEDS: SIMVASTATIN 20 MG TAB PO SCH (21:18)
[2017-06-13 21:35] LABS: PTT PATIENT 71.3 SECONDS (21.0-31.0)
[2017-06-14] VITALS (9 sets, daily range): BP systolic 115–138; BP diastolic 61–82; PULSE 72–87; TEMP 36.7–36.9; O2SAT 94–98
[2017-06-14 04:14] LABS: HEMATOCRIT 38.9 % (37-47); HEMOGLOBIN 12.9 g/dL (12.0-16.0); MEAN CELL VOLUME 90.9 fL (80-100); MEAN CORPUSCULAR HEMOGLOBIN 30.1 pg (25-34); MEAN CORPUSCULAR HGB CONC 33.2 g/dl (32-36); MEAN PLATELET VOLUME 10.9 fL (7.4-10.4); PLATELET COUNT 177 K/uL (130-400); RED CELL DISTRIBUTION WIDTH CV 13.3 % (11.5-14.5); RED CELL DISTRIBUTION WIDTH SD 43.9 fL (36.4-46.3); WHITE BLOOD COUNT 5.18 K/uL (4.8-10.8)
[2017-06-14 04:31] LABS: CALCIUM 9.1 mg/dl (8.5-10.1); CREATININE 1.07 mg/dl (0.60-1.20); POTASSIUM 3.7 mmol/L (3.5-5.1)
[2017-06-14 04:35] LABS: PTT PATIENT 74.5 SECONDS (21.0-31.0)
[2017-06-14] MEDS: PANTOprazole SOD 40 MG TAB PO SCH (07:52)
[2017-06-14] MEDS: ASPIRIN 81 MG ECTAB PO SCH (07:52)
[2017-06-14] MEDS: METOPROLOL SUCC 25MG EXT REL TAB PO SCH (07:52)
[2017-06-14] MEDS: CETIRIZINE HCL 10 MG TAB PO SCH (07:52)
[2017-06-14] MEDS: CALCIUM 600MG + VIT D 400 IU TAB PO SCH (07:53)
[2017-06-14] MEDS: HYDROCHLOROTHIAZIDE 25 MG TAB PO SCH (07:53)
[2017-06-14] MEDS: POTASSIUM CHLORIDE 20 MEQ TABCR PO SCH (07:53)
--- NOTE | 2017-06-14 08:13 | Progress Note ---
Subjective Date of Service: Jun 14, 2017. Subjective Pt evaluation today including: conversation w/ patient, physical exam, lab review, review of studies, conversation w/ business info consultant, review of inpatient medication list Saw/examined the patient in room 205 No problems/issues today Off of supplemental oxygen; now on RA doing well Denies chest pain/shortness of breath No other issues to note today Problem List Medical Problems: (1) Pulmonary embolism, bilateral Status: Acute Social History Problems: (1) Benign hypertension Status: Chronic (2) Diverticulitis Status: Chronic (3) Migraine Status: Chronic (4) renal insufficiency Status: Chronic Review of Systems Constitutional: No fever, No chills Respiratory: No cough, No sputum, No wheezing, No shortness of breath, No dyspnea on exertion, No dyspnea at rest, No hemoptysis Cardiac: No chest pain, No edema, No palpitations Medications Current Inpatient Medications Medications (Trade) Dose Ordered Sig/Sierra Route Start Time Stop Time Status Last Admin Dose Admin Ioversol (Optiray 320) 100 ml UD PRN IV 06/12/17 10:15 06/16/17 10:14 Acetaminophen (Tylenol Tab) 650 mg Q4H PRN PO 06/12/17 13:45 07/12/17 13:44 06/13/17 04:17 650 MG Aspirin (Ecotrin Tab) 81 mg DAILY PO 06/13/17 09:00 07/13/17 08:59 06/14/17 07:52 81 MG Cetirizine HCl (zyrTEC TAB) 10 mg DAILY PO 06/13/17 09:00 07/13/17 08:59 06/14/17 07:52 10 MG Hydrochlorothiazide (Hydrochlorothiazide Tab) 25 mg DAILY PO 06/13/17 09:00 07/13/17 08:59 06/14/17 07:53 25 MG Metoprolol Succinate (Toprol Xl Tab) 37.5 mg DAILY PO 06/13/17 09:00 07/13/17 08:59 06/14/17 07:52 37.5 MG Potassium Chloride (Klor-Con Tab) 20 meq DAILY PO 06/13/17 09:00 07/13/17 08:59 06/14/17 07:53 20 MEQ Simvastatin (Zocor Tab) 20 mg QPM PO 06/12/17 21:00 07/12/17 20:59 06/13/17 21:18 20 MG Calcium/Vitamin D (Caltrate Plus Tab) 2 tab QAM PO 06/13/17 09:00 07/13/17 08:59 06/14/17 07:53 2 TAB Docusate Sodium (coLACE CAP) 100 mg HS PO 06/12/17 21:00 07/12/17 20:59 06/13/17 21:17 100 MG Pantoprazole Sodium (Protonix Tab) 40 mg QAM PO 06/13/17 09:00 07/13/17 08:59 06/14/17 07:52 40 MG Heparin Sodium/ Dextrose 500 ml @ 24 mls/hr [id number] IV 06/12/17 17:00 07/12/17 16:59 06/12/17 23:09 29 MLS/HR Meclizine HCl (Antivert Tab) 12.5 mg TID PRN PO 06/13/17 15:00 07/13/17 14:59 06/13/17 21:18 12.5 MG Warfarin Sodium (Coumadin Tab) 5 mg DAILY@16 PO 06/13/17 16:00 07/13/17 15:59 06/13/17 15:44 5 MG Objective Vital Signs Date Time Temp Pulse Resp B/P (MAP) Pulse Ox O2 Delivery O2 Flow Rate FiO2 06/14/17 04:00 Nasal Cannula 3.0 06/14/17 03:16 36.8 75 20 127/67 (87) 98 Nasal Cannula 3.0 06/13/17 23:59 Nasal Cannula 3.0 06/13/17 23:33 36.8 72 17 128/71 (90) 94 Room Air 06/13/17 20:00 Nasal Cannula 06/13/17 19:13 36.8 79 18 128/60 (82) 97 Nasal Cannula 3.0 06/13/17 16:00 96 Room Air 3.0 100 06/13/17 15:30 36.5 81 18 120/67 (84) 96 Nasal Cannula 3.0 06/13/17 12:00 96 Room Air 3.0 100 06/13/17 11:47 36.4 84 20 130/84 (99) 96 Nasal Cannula 3.0 06/13/17 11:09 82 95 Physical Exam General Appearance: no apparent distress, + obese Respiratory/Chest: chest non-tender, lungs clear, normal breath sounds, no respiratory distress, no accessory muscle use Cardiovascular: regular rate, rhythm, no murmur, + pertinent finding (trace edema, b/l LE) Neurologic/Psychiatric: no motor/sensory deficits, alert, normal mood/affect Laboratory Results Last 24 Hours Test 06/13/17 12:25 06/13/17 19:59 06/14/17 04:02 Activated Partial Thromboplast Time 88.5 SECONDS 71.3 SECONDS 74.5 SECONDS Partial Thromboplastin Ratio 3.4 2.7 2.9 White Blood Count 5.18 K/uL Red Blood Count 4.28 M/uL Hemoglobin 12.9 g/dL Hematocrit 38.9 % Mean Corpuscular Volume 90.9 fL Mean Corpuscular Hemoglobin 30.1 pg Mean Corpuscular Hemoglobin Concent 33.2 g/dl RDW Standard Deviation 43.9 fL RDW Coefficient of Variation 13.3 % Platelet Count 177 K/uL Mean Platelet Volume 10.9 fL Prothrombin Time 10.5 SECONDS Prothromb Time International Ratio 1.0 Sodium Level 138 mmol/L Potassium Level 3.7 mmol/L Chloride Level 105 mmol/L Carbon Dioxide Level 31 mmol/L Anion Gap 2.0 mmol/L Blood Urea Nitrogen 21 mg/dl Creatinine 1.07 mg/dl Est Creatinine Clear Calc Drug Dose 41.6 ml/min Estimated GFR () 56.4 Estimated GFR (Non- 48.6 BUN/Creatinine Ratio 19.3 Random Glucose 142 mg/dl Calcium Level 9.1 mg/dl Assessment and Plan This is an 82 year old female with a past medical history of morbid obesity, HTN , HLD, osteoporosis, vitamin D deficiency - presents with acute bilateral PE and acute DVT Acute Bilateral PE Acute L sided DVT 06/14 - due to cost of Eliquis, we will try Coumadin - will need to bridge with heparin to Coumadin - will d/c IV heparin drip and start Lovenox with teaching - once patient is comfortable with Lovenox, can likely d/c the patient home in 1 -2 days - echo with no RV strain noted 06/13 - patient currently on IV heparin - not requiring much supplemental oxygen, though on 2L for now; can probably wean off - clinically improving - plan to switch to Coumadin vs. Eliquis; due to patient's obesity, Coumadin may be better choice; patient does want NOAC though - will discuss pricing with case management prior to making any decision HTN - blood pressure controlled - continue current medications DVT ppx - Lovenox 1mg/kg q12 + Coumadin DNR
[2017-06-14] MEDS: ENOXAPARIN 100 MG/1ML SYR SQ SCH ×2 (08:15→21:15)
[2017-06-14] MEDS ORDERED: LOVENOX TEACHING KIT PRN (08:15)
--- NOTE | 2017-06-14 10:00 | PULMONARY PROGRESS NOTE ---
DATE: 06/14/2017 TIME: 9:05 a.m. SUBJECTIVE: The patient feels much better. She slept well last night. She states that she was given some meclizine and it seemed to help her relax as well as improve the vertigo. She feels she is able to take a deeper breath this morning. She is less short of breath. It was determined that the Eliquis was going to be very expensive for her. Thus, she is going to get treated with Coumadin. OBJECTIVE: GENERAL: The patient looks well. She is sitting in a chair. She is cooperative, alert and oriented. She is not complaining of any pain anywhere. VITAL SIGNS: Temperature is 36.9. Heart rate is 100 per minute. The rhythm is regular. Blood pressure is 134/61. ENT: Unremarkable. LUNGS: Lung blair are clear bilaterally. No wheezes or rales were heard. Saturation on room air was 93%. GASTROINTESTINAL: She states she has been off oxygen for about 20 minutes. EXTREMITIES: Showed no cyanosis, clubbing or edema. The left leg is slightly larger than the right leg. This is chronic according to the patient. LABORATORY DATA: White count is 5.18. Hemoglobin 12.9. Platelets 177,000. PTT today was 74.5. Electrolytes show sodium 138, potassium 3.7, chloride 105, bicarbonate 31. Prior bicarbonates were 27. BUN is 21 with a creatinine of 1.07. IMPRESSIONS: 1. Acute pulmonary embolism involving both right and left lungs. 2. Left lower lobe infiltrate likely secondary to pulmonary infarction -- no clinical evidence for infection. COMMENTS AND RECOMMENDATIONS: The patient is doing well. The case was discussed with Dr. Magdaleno. She is now getting Lovenox and she will get Lovenox upon discharge until her Coumadin meets appropriate INR levels. She is doing very well at this time. I will sign off for now, but would be happy to see her again if requested.
[2017-06-14 10:21] LABS: PTT PATIENT 39.8 SECONDS (21.0-31.0)
[2017-06-14] MEDS: WARFARIN SOD 5 MG TAB PO SCH (16:23)
[2017-06-14] MEDS: DOCUSATE SODIUM 100 MG CAP PO SCH (21:15)
[2017-06-14] MEDS: SIMVASTATIN 20 MG TAB PO SCH (21:15)
[2017-06-14] MEDS: MECLIZINE HCL 12.5 MG TAB PO PRN (22:02)
[2017-06-15] VITALS: O2SAT 95
[2017-06-15 03:00] VITALS: BP 118/54; PULSE 78; TEMP 36.6; O2SAT 93
[2017-06-15 07:21] LABS: HEMATOCRIT 39.4 % (37-47); HEMOGLOBIN 13.1 g/dL (12.0-16.0); MEAN CELL VOLUME 91.2 fL (80-100); MEAN CORPUSCULAR HEMOGLOBIN 30.3 pg (25-34); MEAN CORPUSCULAR HGB CONC 33.2 g/dl (32-36); MEAN PLATELET VOLUME 10.7 fL (7.4-10.4); PLATELET COUNT 190 K/uL (130-400); RED CELL DISTRIBUTION WIDTH CV 13.5 % (11.5-14.5); RED CELL DISTRIBUTION WIDTH SD 44.7 fL (36.4-46.3); WHITE BLOOD COUNT 5.35 K/uL (4.8-10.8)
[2017-06-15 07:31] LABS: INR 1.1 (0.9-1.1); PTT PATIENT 32.4 SECONDS (21.0-31.0)
[2017-06-15] MEDS: HYDROCHLOROTHIAZIDE 25 MG TAB PO SCH (07:41)
[2017-06-15] MEDS: ENOXAPARIN 100 MG/1ML SYR SQ SCH (07:41)
[2017-06-15] MEDS: CALCIUM 600MG + VIT D 400 IU TAB PO SCH (07:41)
[2017-06-15] MEDS: ASPIRIN 81 MG ECTAB PO SCH (07:41)
[2017-06-15] MEDS: POTASSIUM CHLORIDE 20 MEQ TABCR PO SCH (07:42)
[2017-06-15] MEDS: CETIRIZINE HCL 10 MG TAB PO SCH (07:42)
[2017-06-15] MEDS: MECLIZINE HCL 12.5 MG TAB PO PRN (07:42)
[2017-06-15] MEDS: PANTOprazole SOD 40 MG TAB PO SCH (07:42)
[2017-06-15] MEDS: METOPROLOL SUCC 25MG EXT REL TAB PO SCH (07:42)
[2017-06-15 07:56] LABS: CALCIUM 9.1 mg/dl (8.5-10.1); CREATININE 1.05 mg/dl (0.60-1.20); POTASSIUM 3.9 mmol/L (3.5-5.1)
[2017-06-15 08:21] VITALS: BP 131/63; PULSE 84; TEMP 36.4; O2SAT 98
[2017-06-15 08:56] VITALS: O2SAT 95
--- NOTE | 2017-06-15 09:41 | Progress Note ---
Subjective Date of Service: Jun 15, 2017. Subjective Pt evaluation today including: conversation w/ patient, physical exam, lab review, review of studies, review of inpatient medication list Saw/examined the patient in room 205 She's doing well, no problems/issues to note No shortness of breath/chest pain, no pain with inspiration, etc. Currently saturating well on room air, ambulating well Eager to go home Problem List Medical Problems: (1) Pulmonary embolism, bilateral Status: Acute Social History Problems: (1) Benign hypertension Status: Chronic (2) Diverticulitis Status: Chronic (3) Migraine Status: Chronic (4) renal insufficiency Status: Chronic Review of Systems Respiratory: No cough, No sputum, No wheezing, No shortness of breath, No dyspnea on exertion, No dyspnea at rest, No hemoptysis Cardiac: No chest pain, No edema, No palpitations Medications Current Inpatient Medications Medications (Trade) Dose Ordered Sig/Sierra Route Start Time Stop Time Status Last Admin Dose Admin Ioversol (Optiray 320) 100 ml UD PRN IV 06/12/17 10:15 06/16/17 10:14 Acetaminophen (Tylenol Tab) 650 mg Q4H PRN PO 06/12/17 13:45 07/12/17 13:44 06/13/17 04:17 650 MG Aspirin (Ecotrin Tab) 81 mg DAILY PO 06/13/17 09:00 07/13/17 08:59 06/15/17 07:41 81 MG Cetirizine HCl (zyrTEC TAB) 10 mg DAILY PO 06/13/17 09:00 07/13/17 08:59 06/15/17 07:42 10 MG Hydrochlorothiazide (Hydrochlorothiazide Tab) 25 mg DAILY PO 06/13/17 09:00 07/13/17 08:59 06/15/17 07:41 25 MG Metoprolol Succinate (Toprol Xl Tab) 37.5 mg DAILY PO 06/13/17 09:00 07/13/17 08:59 06/15/17 07:42 37.5 MG Potassium Chloride (Klor-Con Tab) 20 meq DAILY PO 06/13/17 09:00 07/13/17 08:59 06/15/17 07:42 20 MEQ Simvastatin (Zocor Tab) 20 mg QPM PO 06/12/17 21:00 07/12/17 20:59 06/14/17 21:15 20 MG Calcium/Vitamin D (Caltrate Plus Tab) 2 tab QAM PO 06/13/17 09:00 07/13/17 08:59 06/15/17 07:41 2 TAB Docusate Sodium (coLACE CAP) 100 mg HS PO 06/12/17 21:00 07/12/17 20:59 06/14/17 21:15 100 MG Pantoprazole Sodium (Protonix Tab) 40 mg QAM PO 06/13/17 09:00 07/13/17 08:59 06/15/17 07:42 40 MG Meclizine HCl (Antivert Tab) 12.5 mg TID PRN PO 06/13/17 15:00 07/13/17 14:59 06/15/17 07:42 12.5 MG Warfarin Sodium (Coumadin Tab) 5 mg DAILY@16 PO 06/13/17 16:00 07/13/17 15:59 06/14/17 16:23 5 MG Enoxaparin Sodium (Lovenox Inj) 100 mg Q12H SQ 06/14/17 08:15 07/14/17 08:14 06/15/17 07:41 100 MG Miscellaneous (Lovenox Teaching Kit) 1 ea PRN PRN N/A 06/14/17 08:15 07/14/17 08:14 Objective Vital Signs Date Time Temp Pulse Resp B/P (MAP) Pulse Ox O2 Delivery O2 Flow Rate FiO2 06/15/17 08:56 95 Room Air 06/15/17 08:21 36.4 84 18 131/63 (85) 98 06/15/17 04:30 Room Air 06/15/17 03:00 36.6 78 18 118/54 (75) 93 Room Air 06/15/17 00:00 95 Room Air 06/14/17 23:05 36.7 77 18 115/66 (82) 95 Room Air 06/14/17 20:30 94 Room Air 06/14/17 18:31 36.8 87 20 115/82 (93) 94 Room Air 06/14/17 16:00 36.7 80 18 131/77 (95) 96 Room Air 2.0 100 06/14/17 16:00 96 Room Air 100 06/14/17 12:00 96 Room Air 100 06/14/17 11:48 36.7 77 20 138/77 (97) 96 Room Air Physical Exam General Appearance: no apparent distress Respiratory/Chest: lungs clear, normal breath sounds, no respiratory distress, no accessory muscle use Cardiovascular: regular rate, rhythm, no edema, no murmur Extremities: + pertinent finding (trace bilateral edema) Neurologic/Psychiatric: no motor/sensory deficits, alert, normal mood/affect Laboratory Results Last 24 Hours Test 06/14/17 10:03 06/15/17 07:00 Activated Partial Thromboplast Time 39.8 SECONDS 32.4 SECONDS Partial Thromboplastin Ratio 1.5 1.2 White Blood Count 5.35 K/uL Red Blood Count 4.32 M/uL Hemoglobin 13.1 g/dL Hematocrit 39.4 % Mean Corpuscular Volume 91.2 fL Mean Corpuscular Hemoglobin 30.3 pg Mean Corpuscular Hemoglobin Concent 33.2 g/dl RDW Standard Deviation 44.7 fL RDW Coefficient of Variation 13.5 % Platelet Count 190 K/uL Mean Platelet Volume 10.7 fL Prothrombin Time 11.5 SECONDS Prothromb Time International Ratio 1.1 Sodium Level 139 mmol/L Potassium Level 3.9 mmol/L Chloride Level 105 mmol/L Carbon Dioxide Level 27 mmol/L Anion Gap 7.0 mmol/L Blood Urea Nitrogen 20 mg/dl Creatinine 1.05 mg/dl Est Creatinine Clear Calc Drug Dose 42.2 ml/min Estimated GFR () 57.7 Estimated GFR (Non- 49.8 BUN/Creatinine Ratio 18.7 Random Glucose 117 mg/dl Calcium Level 9.1 mg/dl Assessment and Plan This is an 82 year old female with a past medical history of morbid obesity, HTN , HLD, osteoporosis, vitamin D deficiency - presents with acute bilateral PE and acute DVT Acute Bilateral PE Acute L sided DVT 06/15 - plan to d/c patient home today with Lovenox and Coumadin 06/14 - due to cost of Eliquis, we will try Coumadin - will need to bridge with heparin to Coumadin - will d/c IV heparin drip and start Lovenox with teaching - once patient is comfortable with Lovenox, can likely d/c the patient home in 1 -2 days - echo with no RV strain noted 06/13 - patient currently on IV heparin - not requiring much supplemental oxygen, though on 2L for now; can probably wean off - clinically improving - plan to switch to Coumadin vs. Eliquis; due to patient's obesity, Coumadin may be better choice; patient does want NOAC though - will discuss pricing with case management prior to making any decision HTN - blood pressure controlled - continue current medications DVT ppx - Lovenox 1mg/kg q12 + Coumadin DNR
[2017-06-15] MEDS ORDERED: LVNIS100 SQ (09:50)
[2017-06-15] MEDS ORDERED: CMD5 PO (09:50)
--- NOTE | 2017-06-15 09:58 | Discharge Instructions ---
Discharge Instructions Date of Service Jun 15, 2017. Admission Reason for Admission: Pulmonary Embolism Discharge Discharge Diagnosis / Problem: Blood clot in lungs and in the Left leg Discharge Goals Goal(s): Decrease discomfort, Improve function, Diagnostic testing, Therapeutic intervention Activity Recommendations Activity Limitations: resume your previous activity . Instructions / Follow-Up Instructions / Follow-Up Please follow-up with Dr. Noni Elizalde on June 19 at 10:15AM You should follow-up with the Coumadin clinic at [facility] on June 17 to check your INR (Coumadin level) Inject Lovenox 100mg twice a day; take Coumadin 5mg daily Current Hospital Diet Patient's current hospital diet: AHA Diet (Heart Healthy) Discharge Diet Recommended Diet: AHA Diet (Heart Healthy) Pending Studies Studies pending at discharge: no Medical Emergencies . Who to Call and When: Medical Emergencies: If at any time you feel your situation is an emergency, please call 911 immediately. . Non-Emergent Contact Non-Emergency issues call your: Primary Care Provider . . "Provider Documentation" section prepared by Zeina Magdaleno. .
--- NOTE | 2017-06-15 10:01 | Discharge Summary ---
Discharge Summary Date of Service Jun 15, 2017. Discharge Summary Admission Date: Jun 12, 2017 at 13:43 Discharge Date: Jun 15, 2017 Discharge Disposition: Home Principal Diagnosis: Acute Bilateral Pulmonary Embolism Acute L lower extremity DVT HTN Medication Reconciliation New Medications: Enoxaparin (Enoxaparin Sodium) 100 Mg/Ml Inj 100 MG SQ Q12H for 5 Days, #10 ML Warfarin Sod (Coumadin) 5 Mg Tab 5 MG PO DAILY for 30 Days, #30 TAB Continued Medications: Aspirin (Aspirin Ec) 81 Mg Tab 81 MG PO DAILY Calcium Carbonate-Cholecalcife (Caltrate 600+D) 1 Tab Tab 2 TAB PO QAM Cetirizine (Zyrtec) 10 Mg Tab 10 MG PO DAILY, TAB Docusate Sodium (Stool Softener) 100 Mg Tab 100 MG PO HS Hydrochlorothiazide (Hctz) 25 Mg Tab 25 MG PO DAILY, TAB Meclizine HCl (Meclizine HCl) 12.5 Mg Tab 12.5-25 MG PO TID PRN for dizziness Metoprolol Succ (Toprol Xl) (Toprol-Xl) 25 Mg Tabcr 37.5 MG PO DAILY, TAB Omeprazole (Prilosec) 20 Mg Capcr 20 MG PO DAILY, CAP Potassium Chloride (Micro-K Ext Rel) 10 Meq Capcr 20 MEQ PO DAILY, CAP Simvastatin (Zocor) 20 Mg Tab 20 MG PO QPM, TAB Admission Information HPI (per Admitting provider): 82-year-old female who presents to the ER with chief complaint of shortness of breath. Patient reports that yesterday she felt a little short of breath but did not think much of it. She reports the shortness of breath was significantly worse this morning. She reports shortness of breath minimal exertion. Patient drove herself to her scheduled dermatology appointment this morning when she arrived to the office she was found to be visibly short of breath and EMS was therefore called. Patient reports she otherwise has been feeling well recently. She reports that she is not very active secondary to her spinal stenosis but denies any recent changes in her activity level. No recent long travel. She denies chest pain, lightheadedness, dizziness, diaphoresis, syncopal events. She has chronic lower extremity edema, left greater than right, that she feels is slightly worse than baseline. She had some mild nausea this morning but denies vomiting, abdominal pain, diarrhea. No fevers or chills. She denies any urinary symptoms. In the ED, patient underwent CTA chest that showed extensive bilateral pulmonary emboli with possible pulmonary infarction. She was saturating 85% on room air which improved with oxygen 3 L via nasal cannula. Otherwise vital signs are stable. Labs are unremarkable. Patient was started on IV heparin. Physical Exam (per Admitting): General Appearance: WD/WN, no apparent distress, + obese Head: normocephalic, atraumatic Eyes: normal inspection, EOMI, sclerae normal ENT: hearing grossly normal, + pertinent finding (Mucous membranes moist) Neck: supple, no JVD, trachea midline Respiratory/Chest: lungs clear, normal breath sounds, no respiratory distress Cardiovascular: regular rate, rhythm, normal peripheral pulses, + pertinent finding (+1 edema BLE) Abdomen/GI: normal bowel sounds, non tender, soft, no organomegaly Extremities/Musculoskelatal: normal inspection, no calf tenderness, normal capillary refill Neurologic/Psych: no motor/sensory deficits, alert, normal mood/affect, oriented x 3 Skin: normal color, warm/dry Hospital Course This is an 82 year old female with a past medical history of morbid obesity, HTN , HLD, osteoporosis, vitamin D deficiency - presents with acute bilateral PE and acute DVT Acute Bilateral PE Acute L sided DVT 06/15 - plan to d/c patient home today with Lovenox and Coumadin 06/14 - due to cost of Eliquis, we will try Coumadin - will need to bridge with heparin to Coumadin - will d/c IV heparin drip and start Lovenox with teaching - once patient is comfortable with Lovenox, can likely d/c the patient home in 1 -2 days - echo with no RV strain noted 06/13 - patient currently on IV heparin - not requiring much supplemental oxygen, though on 2L for now; can probably wean off - clinically improving - plan to switch to Coumadin vs. Eliquis; due to patient's obesity, Coumadin may be better choice; patient does want NOAC though - will discuss pricing with case management prior to making any decision HTN - blood pressure controlled - continue current medications DVT ppx - Lovenox 1mg/kg q12 + Coumadin DNR Total time spent on discharge = 40 minutes This includes examination of the patient, discharge planning, medication reconciliation, and communication with other providers. Discharge Instructions Please follow-up with Dr. Noni Elizalde on June 19 at 10:15AM You should follow-up with the Coumadin clinic at [facility] on June 17 to check your INR (Coumadin level) Inject Lovenox 100mg twice a day; take Coumadin 5mg daily
[2017-06-15 10:26] VITALS: BP 131/63; PULSE 84; TEMP 36.4; O2SAT 95
[2017-06-15 12:02] VITALS: O2SAT 95
--- NOTE | 2017-06-17 11:49 | EDITING REQUIRED CODING QUERY ---
To promote full compliance with coding requirements relating to patient care, provider participation is requested in all cases of filler operator uncertainty. Please assist us with the question(s) below: Coding Question(s): The diagnosis(es) below was documented in the H&P, then subsequently fell off all further documentation. Please indicate if it is still a possible diagnosis or ruled out. Physician's Response(s): ACUTE HYPOXIC RESPIRATORY FAILURE ( X ) Diagnosed and POA ( ) Diagnosed and not POA ( ) Ruled out ( ) Other (please specify)
== END 2017-06-15 13:47 | disposition home or self-care (01) | DRG 175 ==
LOC: EDBD 09:51 → C.EDB 09:53 → C.2E 13:43 → ENRESERV 14:10
PROVIDERS: ADMIT Internal Medicine; ATTEND Family Medicine
DX: I26.99 Other pulmonary embolism without acute cor pulmonale (principal); J96.01 Acute respiratory failure with hypoxia; I82.4Z2 Acute embolism and thrombosis of unspecified deep veins of left distal lower extremity; I82.412 Acute embolism and thrombosis of left femoral vein; I82.432 Acute embolism and thrombosis of left popliteal vein; Z68.42 Body mass index [BMI] 45.0-49.9, adult; M48.00 Spinal stenosis, site unspecified; I10 Essential (primary) hypertension; E78.5 Hyperlipidemia, unspecified; K21.9 Gastro-esophageal reflux disease without esophagitis; M81.0 Age-related osteoporosis without current pathological fracture; E55.9 Vitamin D deficiency, unspecified; E66.01 Morbid (severe) obesity due to excess calories; Z51.81 Encounter for therapeutic drug level monitoring; Z79.899 Other long term (current) drug therapy; Z79.82 Long term (current) use of aspirin; Z66 Do not resuscitate; Z85.828 Personal history of other malignant neoplasm of skin; Z86.711 Personal history of pulmonary embolism; Z87.442 Personal history of urinary calculi; Z88.2 Allergy status to sulfonamides; Z88.1 Allergy status to other antibiotic agents; Z88.8 Allergy status to other drugs, medicaments and biological substances; Z82.3 Family history of stroke; Z82.0 Family history of epilepsy and other diseases of the nervous system; Z84.89 Family history of other specified conditions